=== PATIENT | female | born 1990 | race Caucasian/White ===

== ENCOUNTER 2018-03-29 22:14 | Emergency (ER) | payer OTHER ==
[2018-03-29 22:57] VITALS: BP 112/65; PULSE 82; TEMP 98.8; BMI 21.5
--- NOTE | 2018-03-29 23:04 | PDOC ---
History of Present Illness - General Chief Complaint: Vaginal Bleeding Stated Complaint: VAGINAL BLEEDING Time Seen by Provider: 03/29/18 23:04 History Source: Patient - History of Present Illness Initial Comments: 03/29/18 23:33 The patient is a 27 year old female with no PMH that presented to ED complaining of vaginal bleeding and abdominal cramps that started yesterday around 12 PM. She is , LMP January 24, no US, obgyn visit yet. The patient states that her pain was intermittent, 7/10, LLQ, radiation to mid abdomen, now improved, +nausea. The patient reports light red blood, initially it was spotting, now more. She denies fever, chills. She denies diarrhea, dysuria, increased frequency. Timing/Duration: 24 hours Past History - Past Medical History Allergies/Adverse Reactions: Allergies Allergy/AdvReac Type Severity Reaction Status Date / Time No Known Allergies Allergy Verified 03/30/18 00:14 Home Medications: Ambulatory Orders NK [No Known Home Medication] 03/30/18 COPD: No - Suicide/Smoking/Psychosocial Hx Smoking History: Never smoked Have you smoked in the past 12 months: No Information on smoking cessation initiated: No Hx Alcohol Use: No Drug/Substance Use Hx: No Review of Systems - Review of Systems Able to Perform ROS?: Yes Constitutional: No: Symptoms Reported HEENTM: No: Symptoms Reported Respiratory: No: Symptoms reported, Cough, Shortness of Breath, Wheezing Cardiac (ROS): No: Symptoms Reported, Chest Pain, Lightheadedness, Palpitations ABD/GI: Yes: Symptoms Reported, See HPI, Nausea, Vomiting, Abdominal cramping : No: Symptoms Reported, Dysuria, Frequency, Flank Pain Neurological: No: Symptoms reported *Physical Exam - Vital Signs Last Vital Signs Temp Pulse Resp BP Pulse Ox 98.8 F 82 16 112/65 100 03/29/18 22:38 03/29/18 22:38 03/29/18 22:38 03/29/18 22:38 03/29/18 22:38 - Physical Exam General Appearance: Yes: Nourished, Appropriately Dressed HEENT: positive: EOMI, YOSELIN Respiratory/Chest: positive: Lungs Clear, Normal Breath Sounds Cardiovascular: positive: Regular Rhythm, Regular Rate, S1, S2. negative: Edema , Murmur Female Pelvic Exam: positive: vaginal bleeding, other (the patient has visible vaginal bleeding visible outside of her vagina, refused bimanual exam) Moderate Sedation - Procedure Monitoring Vital Signs: Procedure Monitoring Vital Signs Temperature 98.8 F 03/29/18 22:38 Pulse Rate 82 03/29/18 22:38 Respiratory Rate 16 03/29/18 22:38 Blood Pressure 112/65 03/29/18 22:38 O2 Sat by Pulse Oximetry (%) 100 03/29/18 22:38 Medical Decision Making - Medical Decision Making 03/29/18 23:41 The patient is a 27 year old female with vaginal bleeding, abdominal cramping since yesterday around 12 PM. Differential diagnosis includes thretened , ectopic , torsion of ovary. We will obtain transvaginal US, CBC, CMP, quant b hcg., type and screen. The patient refused NS. 03/30/18 00:21 The patient went for transvaginal US. Signed out to Dr Blanchard. *DC/Admit/Observation/Transfer Diagnosis at time of Disposition: Threatened - Referrals Referrals: Mateo Garcia MD [Primary Care Provider] - - Patient Instructions - Post Discharge Activity
--- NOTE | 2018-03-30 00:12 | PDOC ---
Attending Attestation - HPI HPI: 03/30/18 00:14 The patient is a 27 year old female , with no significant PMH, who presents to the emergency department with vaginal bleeding and intermittent abdominal cramps for 1 day. The patient states she is currently with her LMP January 24. The patient states her abdominal cramps are rated 7/10, located in the LLQ, radiating to mid abdomen, with associated nausea without vomiting. The patient reports vaginal bleeding with light red blood which she states was initially spotting but now more. The patient states she has not yet had US or visit with NUCLEAR INSTRUCTOR. The patient denies chest pain, shortness of breath, headache and dizziness. Denies fever, chills, vomit, diarrhea and constipation. Denies dysuria, frequency, urgency. Allergies: NKA Documentation prepared by Basilio Callahan, acting as medical attendant for Tulio Pettit MD. <Basilio Callahan - Last Filed: 03/30/18 00:14> - Resident Resident Name: Kiersten Jin - ED Attending Attestation I have performed the following: I have examined & evaluated the patient, The case was reviewed & discussed with the resident, I agree w/resident's findings & plan, Exceptions are as noted - Physicial Exam PE: 03/30/18 00:38 Patient is awake and alert, well-appearing, in no distress Normocephalic and atraumatic PERRLA, EOMI CTA abdomen soft, nondistended, minimal right lower pelvic tenderness to palpation is appreciated Pelvic exam: See evaluation by Dr. Phillips No CVA tenderness bilaterally - Medical Decision Making 03/30/18 00:39 Patient is a 27-year-old female, 1 para 0, at approximately 9 weeks gestation who presents with abdominal pain and vaginal bleeding. Differential diagnosis includes ectopic versus threatened AB. Will obtain transvaginal ultrasound. Will obtain beta hCG and type and screen. Will reassess. Likely discharge. <Tulio Pettit - Last Filed: 03/30/18 00:40>
--- NOTE | 2018-03-30 00:13 | PDOC ---
*Physical Exam - Vital Signs Last Vital Signs Temp Pulse Resp BP Pulse Ox 98.8 F 82 16 112/65 100 03/29/18 22:38 03/29/18 22:38 03/29/18 22:38 03/29/18 22:38 03/29/18 22:38 ED Treatment Course - LABORATORY CBC & Chemistry Diagram: 03/30/18 00:00 03/30/18 00:00 Medical Decision Making - Medical Decision Making 03/30/18 00:[address] Phillips 27 year old female presented with vaginal bleeding and abdominal cramping for 2 days. 03/30/18 01:29 TVS: 1. Elongated intrauterine gestational sac. No viable intrauterine identified. 2. normal appearance of right and left ovary. Recommendation: interval surveillance with serial beta hCG measurements. 03/30/18 02:00 beta hCG - 4292.1 *DC/Admit/Observation/Transfer Diagnosis at time of Disposition: Threatened - Discharge Dispostion Disposition: HOME Condition at time of disposition: Stable Decision to Admit order: No - Referrals Referrals: Mateo Garcia MD [Primary Care Provider] - - Patient Instructions Additional Instructions: You were seen because you had vaginal bleeding and belly pain. Your beta hCG, which is the hormone, is high. The ultrasound done was not confirmatory. Please follow-up with Dr. Lujan tomorrow as scheduled. We recommend that you have a repeat ultrasound and beta hCG level. Come back to the ED after 2 days if you haven't followed-up with Dr. Lujan by then. Avoid strenuous activities. Drink plenty of water. Call 911 or go to the ED if with any worsening vaginal bleeding, belly pains, weakness, dizziness, fever, chills or any new concerns noted. - Post Discharge Activity
[2018-03-30 01:04] LABS: URINE APPEARANCE CLEAR; URINE BILIRUBIN NEGATIVE (<2.0 mg/dL); URINE COLOR STRAW; URINE GLUCOSE (UA) NEGATIVE (NEGATIVE); URINE KETONE NEGATIVE (NEGATIVE); URINE LEUK ESTERASE NEGATIVE (NEGATIVE); URINE NITRITE NEGATIVE (NEGATIVE); URINE PROTEIN NEGATIVE (NEGATIVE); URINE UROBILINOGEN NEGATIVE mg/dL (0.2-1.0)
[2018-03-30 01:09] LABS: BASO % 0.3 % (0-2.0); EOS % 5.3 % (0-4.5); HEMATOCRIT 39.1 % (32.4-45.2); HEMOGLOBIN 13.8 GM/dL (10.7-15.3); LYMPH % 32.9 % (8-40); MCH 32.5 pg (25.7-33.7); MCHC 35.2 g/dl (32.0-36.0); MEAN CELL VOLUME 92.4 fl (80-96); MEAN PLT VOLUME 9.7 fl (7.5-11.1); MONO % 10.1 % (3.8-10.2); NEUT % 51.4 % (42.8-82.8); PLATELET COUNT 248 K/MM3 (134-434); RBC 4.23 M/mm3 (3.60-5.2); RDW 12.8 % (11.6-15.6); WHITE BLOOD COUNT 7.7 K/mm3 (4.0-10.0)
[2018-03-30 01:28] LABS: EPI CELLS RARE /HPF (FEW); URINE MUCUS RARE
[2018-03-30 01:33] LABS: ALBUMIN 4.2 g/dl (3.4-5.0); ALK PHOS 57 U/L (45-117); ANION GAP 6 MMOL/L (8-16); BILIRUBIN,TOTAL 0.4 mg/dL (0.2-1); BLOOD UREA NITROGEN 12 mg/dL (7-18); CALCIUM 9.1 mg/dL (8.5-10.1); CHLORIDE 102 mmol/L (98-107); CO2 28 mmol/L (21-32); CREATININE 0.7 mg/dL (0.55-1.3); GLUCOSE,RANDOM 95 mg/dL (74-106); POTASSIUM 4.2 mmol/L (3.5-5.1); SGOT/AST 16 U/L (15-37); SGPT/ALT 27 U/L (13-61); SODIUM 137 mmol/L (136-145)
[2018-03-30] MEDS ORDERED: RHO(D) IMMUNE GLOBULIN 1,500 UNIT DISP.SYRIN IM ONE (02:33)
== END 2018-03-30 03:00 | disposition home or self-care (01) ==
LOC: JER 22:14
DX: O26.891 Other specified pregnancy related conditions, first trimester (principal); Z3A.00 Weeks of gestation of pregnancy not specified; O20.0 Threatened abortion
CPT/HCPCS: 36415; 76817-TC; 80053; 81003; 81015; 84702; 85025; 86850; 86900; 86901; 99282-25

== ENCOUNTER 2018-03-30 17:02 | Emergency (ER) | payer OTHER ==
[2018-03-30] MEDS ORDERED: SODIUM CHLORIDE 1,000 ML IV STA (17:07)
[2018-03-30] MEDS ORDERED: ACETAMINOPHEN 1000 MG/100 ML VIAL (NON FORMULARY) IVPB ONE (17:07)
[2018-03-30] MEDS ORDERED: ACETAMINOPHEN INJECTION 100 ML IVPB ONE (17:12)
[2018-03-30 17:27] VITALS: BP 120/60; PULSE 90; TEMP 98; BMI 27.4
[2018-03-30 17:50] LABS: BASO % 0.4 % (0-2.0); EOS % 2.2 % (0-4.5); HEMATOCRIT 38.5 % (32.4-45.2); HEMOGLOBIN 13.5 GM/dL (10.7-15.3); LYMPH % 14.6 % (8-40); MCH 32.5 pg (25.7-33.7); MCHC 35.2 g/dl (32.0-36.0); MEAN CELL VOLUME 92.3 fl (80-96); MEAN PLT VOLUME 9.3 fl (7.5-11.1); MONO % 6.4 % (3.8-10.2); NEUT % 76.4 % (42.8-82.8); PLATELET COUNT 243 K/MM3 (134-434); RBC 4.17 M/mm3 (3.60-5.2); RDW 12.6 % (11.6-15.6); WHITE BLOOD COUNT 14.8 K/mm3 (4.0-10.0)
[2018-03-30 18:00] LABS: INR 1.12 (0.83-1.09); PROTHROMBIN TIME (PATIENT) 13.2 SEC (9.7-13.0)
[2018-03-30 18:11] LABS: ALBUMIN 4.4 g/dl (3.4-5.0); ALK PHOS 60 U/L (45-117); ANION GAP 10 MMOL/L (8-16); BILIRUBIN,TOTAL 0.5 mg/dL (0.2-1); BLOOD UREA NITROGEN 9 mg/dL (7-18); CALCIUM 9.2 mg/dL (8.5-10.1); CHLORIDE 104 mmol/L (98-107); CO2 24 mmol/L (21-32); CREATININE 0.7 mg/dL (0.55-1.3); GLUCOSE,RANDOM 90 mg/dL (74-106); POTASSIUM 3.8 mmol/L (3.5-5.1); SGOT/AST 14 U/L (15-37); SGPT/ALT 26 U/L (13-61); SODIUM 138 mmol/L (136-145)
[2018-03-30] MEDS ORDERED: KETOROLAC TROMETHAMINE 15 MG/ML VIAL IVPUSH ONE (18:27)
--- NOTE | 2018-03-30 18:27 | PDOC ---
History of Present Illness - General Chief Complaint: Vaginal Bleeding Stated Complaint: MISCARRIAGE Time Seen by Provider: 03/30/18 17:07 - History of Present Illness Initial Comments: 03/30/18 18:21 27 yo , LMP 01/24/18, at 5w6d with no significant history BIBA with vaginal bleeding, and abdominal pain. Patient with ongoing, unremitting, crampy lower abdominal pain, and vaginal bleeding/.clotting x 3 days. 2 pads per day. Patient with 3 hours of worsening 10/10 severity lower abdominal pain, and increased clotting. + nausea without vomiting. Follows with Dr. Medina. Patient recently seen in office Dr. Medina today with TVUS no FHR, but visible gestational sac/ pole in uterus. Per Dr. Medina, patient will likely spontaneous pass products. Patient last seen in [facility] ED (03/29/18) with similar presentation, TVUS (03/29/18) with likely demise 5w6d, and no FHR. Blood A+. Patient denies NEAL, LOC, vision change, convulsions, palpitations, F,C, CP, SOB, urinary complaints, hematuria, BPR, diarrhea, constipation, lightheadedness, weakness, sensory changes. PMHx: as noted above. Denies h/o abdominal surgeries ROS: as noted SHx: Denies Etoh, IVDA, tobacco, Caffeine. Allergies: NKDA Dredge Lever Operator: Dr. Alcala Past History - Past Medical History Allergies/Adverse Reactions: Allergies Allergy/AdvReac Type Severity Reaction Status Date / Time No Known Allergies Allergy Verified 03/30/18 00:14 Home Medications: Ambulatory Orders NK [No Known Home Medication] 03/30/18 COPD: No CHF: No - Reproductive History Is Patient Now?: Yes Cervical CA: No Dysfunctional Uterine Bleeding: No Ectopic : No Endometrial CA: No Polycystic Ovaries: No Tubal Ligation: No Spontaneous : 1 - Suicide/Smoking/Psychosocial Hx Smoking History: Never smoked Have you smoked in the past 12 months: No Information on smoking cessation initiated: No Hx Alcohol Use: No Drug/Substance Use Hx: No Review of Systems - Review of Systems Comments:: 03/30/18 18:30 GENERAL/CONSTITUTIONAL: No fever or chills. No weakness. HEAD, EYES, EARS, NOSE AND THROAT: No change in vision. No ear pain or discharge. No sore throat. CARDIOVASCULAR: No chest pain or shortness of breath RESPIRATORY: No cough, wheezing, or hemoptysis. GASTROINTESTINAL: + Abdominal pain, nausea, vomiting. No diarrhea or constipation. GENITOURINARY: + Vaginal bleeding, and pelvic pain. No dysuria, frequency, or change in urination. MUSCULOSKELETAL: No joint or muscle swelling or pain. No neck or back pain. SKIN: No rash NEUROLOGIC: No headache, vertigo, loss of consciousness, or change in strength/ sensation. ENDOCRINE: No increased thirst. No abnormal weight change HEMATOLOGIC/LYMPHATIC: No anemia, easy bleeding, or history of blood clots. ALLERGIC/IMMUNOLOGIC: No hives or skin allergy. *Physical Exam - Vital Signs Last Vital Signs Temp Pulse Resp BP Pulse Ox 98.0 F 90 16 120/60 100 03/30/18 17:05 03/30/18 17:05 03/30/18 17:05 03/30/18 17:05 03/30/18 17:05 - Physical Exam Comments: 03/30/18 18:31 GENERAL: Awake, alert, and fully oriented, in no acute distress HEAD: No signs of trauma, normocephalic, atraumatic EYES: PERRLA, EOMI, sclera anicteric, conjunctiva clear ENT: Auricles normal inspection, hearing grossly normal, nares patent, oropharynx clear without exudates. Moist mucosa NECK: Normal ROM, supple, no lymphadenopathy, JVD, or masses LUNGS: No distress, speaks full sentences, clear to auscultation bilaterally HEART: Regular rate and rhythm, normal S1 and S2, no murmurs, rubs or gallops, peripheral pulses normal and equal bilaterally. ABDOMEN: + BL Lower abdominal ttp. Soft, nontender, normoactive bowel sounds. No guarding, no rebound. No masses. Neg CVA ttp. GENITOURINARY: + visible blood on external genitalia. + blood pooling in vaginal vault. + Clotting in vaginal vault. Cervical os open. Neg adenexal ttp. Neg CMT on BM. Supervised by nurse Schuler. EXTREMITIES : Normal inspection, Normal range of motion, no edema. No clubbing or cyanosis. SKIN: Warm, Dry, normal turgor, no rashes or lesions noted Moderate Sedation - Procedure Monitoring Vital Signs: Procedure Monitoring Vital Signs Temperature 98.0 F 03/30/18 17:05 Pulse Rate 90 03/30/18 17:05 Respiratory Rate 16 03/30/18 17:05 Blood Pressure 120/60 03/30/18 17:05 O2 Sat by Pulse Oximetry (%) 100 03/30/18 17:05 ED Treatment Course - LABORATORY CBC & Chemistry Diagram: 03/30/18 17:21 03/30/18 17:21 - ADDITIONAL ORDERS Additional order review: Laboratory Results 03/30/18 03/30/18 17:21 17:21 PT with INR 13.20 H INR 1.12 H Sodium 138 Potassium 3.8 Chloride 104 Carbon Dioxide 24 Anion Gap 10 BUN 9 Creatinine 0.7 Creat Clearance w eGFR > 60 Random Glucose 90 Calcium 9.2 Total Bilirubin 0.5 AST 14 L ALT 26 Alkaline Phosphatase 60 Total Protein 8.0 Albumin 4.4 03/30/18 17:21 RBC 4.17 MCV 92.3 MCHC 35.2 RDW 12.6 MPV 9.3 Neutrophils % 76.4 D Lymphocytes % 14.6 D Monocytes % 6.4 Eosinophils % 2.2 Basophils % 0.4 - Medications Given in the ED: ED Medications Discontinued Medications Generic Name Dose Route Start Last Admin Trade Name Freq PRN Reason Stop Dose Admin Acetaminophen 1,000 mg 03/30/18 17:07 03/30/18 17:27 Ofirmev Injection - IVPB 03/30/18 17:08 1,000 mg ONCE ONE Administration Sodium Chloride 1,000 mls @ 1,000 mls/hr 03/30/18 17:07 03/30/18 17:27 Normal Saline - IV 03/30/18 18:06 1,000 mls/hr ASDIR STA Administration Medical Decision Making - Medical Decision Making 03/30/18 18:27 27 yo , LMP 01/24/18 with no significant history BIBA with vaginal bleeding , and abdominal pain. VSS, AF, A&Ox3+, + open cervical os, visible tissue , clotting, BL lower abdominal ttp. Will evaluate for demise. Will consider threatened or complete , ectopic , retained POC, ovarian pathology, cystitis. Less likely GI related; appendicitis, colitis. ED Course: CBC,CMP, HCG, UA TVUS Possible gestational sac/ tissue recovered on physical exam. Sent to path. 03/30/18 19:49 TVUS: No gestational sac or embryonic pole. 03/30/18 19:49 WBC: 14.8 HCG( 3401), 03/30/18 ( 4292 ) 03/30/18 20:05 Dr. Medina answering service contacted. Awaiting call back. 03/30/18 20:[address] Medina will give 20 Units Pitocin in 1000 NS at 250/hr. Can go home after 500. Follow up in office in 2 weeks. 03/30/18 23:51 Pitocin drip finished Patient pain free, HDS. Absent abdominal ttp. Vaginal bleeding controlled. Patient advised to f/u with [facility] with confirmed apt. Monday (04/01/18) Stable for d/c with return precautions. *DC/Admit/Observation/Transfer Diagnosis at time of Disposition: Threatened , Complete - Referrals Referrals: Mateo Garcia MD [Primary Care Provider] - - Patient Instructions Printed Discharge Instructions: DI for Miscarriage Additional Instructions: Please return to the emergency department with any new or worsening symptoms or concerns. Please follow up with your primary care physician within 72 hours. Please follow up with Dredge Lever Operator Dr. Alcala within in 2 days. - Post Discharge Activity - Attestations Physician Attestion: 03/30/18 19:50 I attest to the information provided in this note.
[2018-03-30] MEDS ORDERED: KETOROLAC TROMETHAMINE 15 MG/ML VIAL ONE (18:39)
--- NOTE | 2018-03-30 19:16 | PDOC ---
Attending Attestation - HPI HPI: 03/30/18 19:27 The patient is a 27-year-old female, , 9 weeks , presents to the emergency department via EMS with vaginal bleeding and abdominal pain. The patient presents with 3 days of vaginal bleeding, associated with abdominal pain thats increased in severity. The patient reports shes been having 3 days of vaginal bleeding, with clot passing. The patient was seen at ER on 2017 for similar symptoms. The patients transvaginal u/s showed, gestational age of 5 weeks 6 days The patient was discharged and recommended to follow up with ENTERTAINMENT CENTRE MANAGER. The patient reports following up with Dr. Lujan. The patient reports following up with OB states she would pass rest of the tissue. Denies fever, chills, headache, chest pain, SOB, dysuria, frequency or urgency to urinate, diarrhea, weakness, lightheadedness, or tingling. LMP: 01/24/2018 Allergies: NKA Social history: None reported Surgical history: None reported. ENTERTAINMENT CENTRE MANAGER: Dr. Perez. PCP: Mateo Foley MD. - Physicial Exam PE: 03/30/18 20:50 GENERAL: The patient is in no acute distress. LUNGS: Breath sounds equal, clear to auscultation bilaterally. No wheezes, and no crackles. HEART:Regular rate and rhythm, normal S1 and S2 without murmur, rub or gallop. ABDOMEN: Soft, nontender No guarding, no rebound. No masses palpable. Pelvic exam: Per Dr. Bojorquez. - Medical Decision Making 03/30/18 19:28 Documentation prepared by Kaia Fuentes, acting as medical technician for Sylvia Moore MD. <Kaia Fuentes - Last Filed: 03/30/18 20:50> - Resident Resident Name: Gregorio Bojorquez - ED Attending Attestation I have performed the following: I have examined & evaluated the patient, The case was reviewed & discussed with the resident, I agree w/resident's findings & plan, Exceptions are as noted - HPI HPI: - Physicial Exam PE: 03/30/18 19:21 - Medical Decision Making 03/30/18 19:17 Laboratory Tests 03/30/18 03/30/18 03/30/18 00:00 00:00 00:00 WBC 7.7 Hgb 13.8 Hct 39.1 Plt Count 248 BUN 12 Creatinine 0.7 Beta HCG, Quant 4292.1 03/30/18 03/30/18 03/30/18 17:21 17:21 17:21 WBC 14.8 H Hgb 13.5 Hct 38.5 Plt Count 243 BUN 9 Creatinine 0.7 Beta HCG, Quant 3201.9 Pt sent to US, pending results 03/30/18 19:19 03/30/18 20:45 US demonstrates miscarriage case reviewed with Dr Lujan He recommends Pitocin drip for 2 hours and then discharge Follow up in the office in 2 weeks (pt has appointment in 3 days) Pt given strict return precautions <Sylvia Moore - Last Filed: 03/30/18 21:07>
[2018-03-30] MEDS ORDERED: OXYTOCIN 20 UNITS in 0.9% NS 20 UNIT/1,000 ML INFUS.BAG IV SCH (20:15)
[2018-03-30] MEDS ORDERED: OXYTOCIN 10 UNITS/ML VIAL ONE (22:15)
--- NOTE | 2018-04-04 16:51 | PATH ---
Surgical Pathology Report Patient Name: DELIA MADSEN [facility]. Rec. #: [id number] /Age/Gender: 1990 (Age: 27) / F Account: [id number] Location: EMERGENCY ROOM Taken: 03/30/2018 Received: 04/02/2018 Reported: 04/04/2018 Physicians: Twin Leger M.D. PHYSICIAN EMERGENCY DEPT Specimen(s) Received VAGINAL/UTERINE SPECIMEN Clinical History 5 weeks 6 days 27 year old , 3 days of abdominal pain and vaginal bleeding Final Diagnosis PRODUCTS OF CONCEPTION, DILATION AND CURETTAGE: RARE IMMATURE CHORIONIC VILLI AND DECIDUA CONSISTENT WITH PRODUCTS OF CONCEPTION. Electronically Signed Harini Crain M.D. Gross Description Received in formalin, labeled with the patient's name and indicated on the requisition to be products of conception, is a 7.5 x 4.2 x 0.5 cm portion of deluca davis soft tissue, consistent with decidual tissue. No definite villous tissue or somatic tissue is identified. The entire specimen is submitted in 8 cassettes. 04/02/2018 saudi04/02/2018
== END 2018-03-31 01:17 | disposition home or self-care (01) ==
LOC: JER 17:02
PROC: 3E033NZ Introduction of Analgesics, Hypnotics, Sedatives into Peripheral Vein, Percutaneous Approach (ICD-10-PCS; principal; 2018-03-30)
PROC: 3E0333Z Introduction of Anti-inflammatory into Peripheral Vein, Percutaneous Approach (ICD-10-PCS; 2018-03-30)
PROC: 3E0337Z Introduction of Electrolytic and Water Balance Substance into Peripheral Vein, Percutaneous Approach (ICD-10-PCS; 2018-03-30)
DX: O26.891 Other specified pregnancy related conditions, first trimester (principal); Z3A.09 9 weeks gestation of pregnancy; O03.9 Complete or unspecified spontaneous abortion without complication
CPT/HCPCS: 36415; 76817-TC; 80053; 84702; 85025; 85610; 86850; 86900; 86901; 88305-TC; 99283-25; J0131; J7030

== ENCOUNTER 2019-05-20 | Inpatient (IN) | payer OTHER ==
[2019-05-20 02:51] LABS: BASO % 0.1 % (0-2.0); HEMATOCRIT 38.7 % (32.4-45.2); HEMOGLOBIN 13.1 GM/dL (10.7-15.3); LYMPH % 12.5 % (8-40); MCH 32.3 pg (25.7-33.7); MCHC 33.8 g/dl (32.0-36.0); MEAN CELL VOLUME 95.6 fl (80-96); MEAN PLT VOLUME 8.6 fl (7.5-11.1); MONO % 7.7 % (3.8-10.2); NEUT % 78.7 % (42.8-82.8); PLATELET COUNT 238 K/MM3 (134-434); RBC 4.05 M/mm3 (3.60-5.2); RDW 13.6 % (11.6-15.6); WHITE BLOOD COUNT 12.1 K/mm3 (4.0-10.0)
[2019-05-20 03:03] LABS: INR 0.92 (0.83-1.09); PROTHROMBIN TIME (PATIENT) 10.9 SEC (9.7-13.0)
[2019-05-20 03:06] LABS: ACTIVATED PTT 31.1 SECONDS (25.2-36.5)
[2019-05-20 03:14] LABS: BLOOD UREA NITROGEN 6.5 mg/dL (7-18); CALCIUM 9.3 mg/dL (8.5-10.1); CREATININE 0.5 mg/dL (0.55-1.3); POTASSIUM 4.3 mmol/L (3.5-5.1)
[2019-05-20] MEDS ORDERED: OXYTOCIN 20 UNITS in 0.9% NS 20 UNIT/1,000 ML INFUS.BAG IV ONE (03:19)
[2019-05-20] MEDS ORDERED: LIDOCAINE HCL 1% PRESERVATIVE FREE - 30ML VIAL ONE (03:20)
[2019-05-20] MEDS ORDERED: BENZOCAINE 28 GM HEMORRHOIDAL OINTMENT TP PRN (04:15)
[2019-05-20] MEDS ORDERED: WITCH HAZEL 50% (TUCKS) 40 PAD/JAR PAD TP PRN (04:15)
[2019-05-20] MEDS ORDERED: BENZOCAINE 20% 57 GM BOTTLE TP PRN (04:15)
[2019-05-20] MEDS ORDERED: OXYTOCIN 20 UNITS in 0.9% NS 20 UNIT/1,000 ML INFUS.BAG IV SCH (04:15)
[2019-05-20] MEDS ORDERED: BISACODYL 10 MG SUPP.RECT RC PRN (04:15)
[2019-05-20] MEDS ORDERED: METHYLERGONOVINE MALEATE 0.2 MG/1 ML AMP IM PRN (04:15)
--- NOTE | 2019-05-20 04:22 | HP ---
Past Medical History - Primary Care Physician PCP:: Yves Estrada - Admission Chief Complaint: 28yo P0 with at EGA 37wk admtted in spont labor. History of Present Illness: Pt presented in labor and was noted to be 2 cm dilated. She progressed quickly to 10cm and had . with cholestasis of . 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: No: Alzheimer's, CVA, Dementia, Migraine, Multiple Sclerosis, Peripheral Neuropathy, Parkinson's, Seizure, Syncope, TIA, Vertigo, Other Cardiovascular: No: AFIB, Aneurysm, Aortic Insufficiency, Aortic Stenosis, CAD, CHF, Deep Vein Thrombosis, HTN, Hyperlipdemia, AR, Mitral Insufficiency, Mitral Stenosis, Murmur, Pulmonary Hypertension, Other Pulmonary: No: Asthma, Bronchitis, Cancer, COPD, O2 Dependent, Pneumonia, Previously Intubated, Pulmonary Embolus, Pulmonary Fibrosis, Sleep Apnea, Other Gastrointestinal: No: Ascites, Cancer, Constipation, Crohn's Disease, Diverticulitis, Diverticulosis, Esophageal Varices, Gastritis, GERD, GI Bleed, Hemorrhoids, Hiatal Hernia, Inflamatory Bowel Disease, Irritable Bowel Disease, Pancreatitis, Peptic Ulcer Disease, Ulcerative Colitis, Other Hepatobiliary: Yes: Other (cholestasis of ) Renal/: No: Renal Failure, Renal Inusuff, BPH, Cancer, Hematuria, Hemodialysis , Neurogenic Bladder, Renal Calculi, UTI, Other Reproductive: No: Ectopic , Endometriosis, Fibroids, PID, Polycystic Ovary Syndrome, Postmenopausal, Other ...: 2 ...Para: 0 ...Spon : 0 ...Induced : 1 ... Weeks Gestation by Dates: 37 Heme/Onc: No: Anemia, B12 Deficiency, Bleeding Disorder, Cancer, Current Chemotherapy, Current Radiation Therapy, Hemochromatosis, Hypercoaguable State, Myeloproliferative Synd, Sickle Cell Disease, Sickle Cell Trait, Thrombocytopenia, Other Infectious Disease: No: AIDS, C-Diff, Herpes Zoster, HIV, MRSA, STD's, Tuberculosis, VREF, Other Psych: No: Addictions, Anxiety, Bipolar, Depression, Panic, Psychosis, Schizophrenia, Other Musculoskeletal: No: Bursitis, Chronic low back pain, Hemiparesis, Hemiplegia, Osteoarthritis, Paraplegia, Other Rheumatology: No: Fibromyalgia, Gout, Lupus, Rheumatoid Arthritis, Sarcoidosis, Vasculitis, Other ENT: No: Allergic Rhinitis, Sinusitis, Other Endocrine: No: Ronnie's Disease, Sherlyn's Disease, Diabetes Insipidus, Diabetes Mellitus, Hyperparathyroidism, Hyperthyroidism, Hypothyroidism, Osteopenia, SIADH, Other Dermatology: No: Basal Cell, Cellulitis, Eczema, Melanoma, Psoriasis, Squamous Cell, Other - Past Surgical History Past Surgical History: Yes: None Hx Myomectomy: No Hx Transabdominal Cerclage: No - Smoking History Smoking history: Never smoked Have you smoked in the past 12 months: No - Alcohol/Substance Use Hx Alcohol Use: No History of Substance Use: reports: None - Social History Usual Living Arrangement: Yes: With Spouse Do you think of yourself as: Straight/Heterosexual ADL: Independent 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 History of Recent Travel: No Home Medications - Allergies Allergies/Adverse Reactions: Allergies Allergy/AdvReac Type Severity Reaction Status Date / Time No Known Allergies Allergy Verified 05/20/19 02:29 Family Medical History Family History: Denies Review of Systems - Review of Systems Constitutional: reports: Other (Labor) Eyes: reports: No Symptoms HENT: reports: No Symptoms Neck: reports: No Symptoms Cardiovascular: reports: No Symptoms Respiratory: reports: No Symptoms Gastrointestinal: reports: No Symptoms Genitourinary: reports: Other (SROM) Breasts: reports: No Symptoms Reported Musculoskeletal: reports: No Symptoms Integumentary: reports: No Symptoms Neurological: reports: No Symptoms Endocrine: reports: No Symptoms Hematology/Lymphatic: reports: No Symptoms Psychiatric: reports: No Symptoms Pain Intensity: 10 Physical Exam - Maternity Constitutional: Yes: Well Nourished, Calm, Severe Distress Eyes: Yes: WNL, Conjunctiva Clear, EOM Intact HENT: Yes: WNL, Atraumatic, Normocephalic Neck: Yes: WNL, Supple, Trachea Midline Cardiovascular: Yes: WNL, Regular Rate and Rhythm Lungs: Clear to auscultation, Normal air movement Breast(s): Yes: WNL - Abdominal Exam/OB Fundal Height: 37 Number of Fetuses: Single Presentation: Vertex Contractions: Yes Regularity: Regular Monitor Mode: External Heart Rate (range): 140 Category: I Accelerations: Non-Uniform Decelerations: None - Vaginal Exam/OB Vaginal Bleediing: No Speculum Exam: No Dilatation (cm): 10 Station: +3 - Physical Exam Musculoskeletal: Yes: WNL Extremities: Yes: WNL Edema: No Integumentary: Yes: WNL Deep Tendon Reflex Grade: Normal +2 ...Motor Strength: WNL Psychiatric: Yes: WNL, Alert, Oriented - Labs Lab Results: CBC, BMP 05/20/19 02:00 05/20/19 02:00 Hemorrhage Risk Assessment - Risk Factors Medium Risk Factors: Yes: None High Risk Factors: Yes: None Risk Score: 1 Risk Level: Medium Risk Imaging - Results Ultrasound: Report Reviewed Assessment/Plan 28yo P0 with at EGA 37wk admtted in spont labor. Pt had w/o complications.
[2019-05-20] MEDS ORDERED: ACETAMINOPHEN 325 MG TABLET (FP) ONE (04:25)
[2019-05-20] MEDS ORDERED: IBUPROFEN 600 MG TABLET (FP) PO ONE (04:25)
[2019-05-20 05:18] VITALS: BMI 23.0
--- NOTE | 2019-05-20 08:49 | PN ---
Delivery - Delivery Vaginal Delivery: No Problems, Spontaneous Type of Anesthesia: Local Episiotomy/Laceration: Midline EBL (cc): 250 Delivery, Single - Stages of Labor Date 1st Stage Initiatied: 05/19/19 Time 1st Stage Initiated: 22:00 Date 2nd Stage Initiated: 05/20/19 Time 2nd Stage Initiated: 03:10 Date of Delivery: 05/20/19 Time of Delivery: 03:46 Date Placenta Delivered: 05/20/19 Time Placenta Delivered: 03:50 Placenta: Yes: Spontaneous, Normal Configuration - Condition of Infant Field Manager/Well Logging Captain Mud Analysis Present: No Gender: Female Position: Left, OA Total Hours ROM (Hrs/Mins): 31M - 1 Minute Total Score: 9 5 Minutes Total Score: 9 - [place] Feeding Plan Initial Plan: Elected not to breastfeed exclusively throughout hospitalization Benefits of Exclusively reinforced: Yes
[2019-05-20] MEDS: PRENATAL VITAMINS W/ FOLIC ACID TABLET (FP) PO SCH (09:32)
[2019-05-20] MEDS: IBUPROFEN 600 MG TABLET (FP) PO PRN ×2 (15:30→22:59)
[2019-05-20] MEDS: ACETAMINOPHEN 325 MG TABLET (FP) PO PRN ×2 (15:31→23:01)
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
--- NOTE | 2019-05-21 07:53 | PN ---
Post Progress Note - Subjective Subjective: Patient without acute complaints. Reports tolerating oral intake without nausea or vomiting. Ambulating without dizziness. Denies fevers or chills. Pain well controlled with oral pain medication. Pumping/breast feeding without issue. Passing flatus, no BM. Post Day: 1 Type of Delivery: Vital Signs: Vital Signs Temperature 97.6 F 05/21/19 06:00 Pulse Rate 62 05/21/19 06:00 Respiratory Rate 16 05/21/19 06:00 Blood Pressure 80/50 L 05/21/19 06:00 O2 Sat by Pulse Oximetry (%) Breast Exam: Yes: Soft Uterus: Yes: Fundus Firm, Fundus @ umbilicus Incision: Yes: Dressing dry and intact Abdomen/GI: Yes: Abdomen soft Lochia: Yes: Rubra Lochia, amount: Small Extremities: Yes: Calves non-tender Perineum: Yes: Laceration. No: Intact Activity: Ambulating - Labs Labs: CBC WBC 12.1 K/mm3 (4.0-10.0) H 05/20/19 02:00 RBC 4.05 M/mm3 (3.60-5.2) 05/20/19 02:00 Hgb 13.1 GM/dL (10.7-15.3) 05/20/19 02:00 Hct 38.7 % (32.4-45.2) 05/20/19 02:00 MCV 95.6 fl (80-96) 05/20/19 02:00 MCH 32.3 pg (25.7-33.7) 05/20/19 02:00 MCHC 33.8 g/dl (32.0-36.0) 05/20/19 02:00 RDW 13.6 % (11.6-15.6) 05/20/19 02:00 Plt Count 238 K/MM3 (134-434) 05/20/19 02:00 MPV 8.6 fl (7.5-11.1) 05/20/19 02:00 Absolute Neuts (auto) 9.6 K/mm3 (1.5-8.0) H 05/20/19 02:00 Neutrophils % 78.7 % (42.8-82.8) 05/20/19 02:00 Lymphocytes % 12.5 % (8-40) 05/20/19 02:00 Monocytes % 7.7 % (3.8-10.2) 05/20/19 02:00 Eosinophils % 1.0 % (0-4.5) 05/20/19 02:00 Basophils % 0.1 % (0-2.0) 05/20/19 02:00 Nucleated RBC % 0 % (0-0) 05/20/19 02:00 Assessment/Plan 28yo s/p PPD # 1 doing well VSS, Afebrile cont. routine PP care Plan d/c 05/22/19 Rh pos - no need for RhoGam Female - doing well
[2019-05-21 09:26] LABS: BASO % 0.2 % (0-2.0); EOS % 1.8 % (0-4.5); LYMPH % 14.7 % (8-40); MCH 32.8 pg (25.7-33.7); MCHC 34.3 g/dl (32.0-36.0); MEAN CELL VOLUME 95.7 fl (80-96); MEAN PLT VOLUME 8.3 fl (7.5-11.1); MONO % 5.6 % (3.8-10.2); NEUT % 77.7 % (42.8-82.8); PLATELET COUNT 197 K/MM3 (134-434); RBC 3.34 M/mm3 (3.60-5.2); RDW 13.4 % (11.6-15.6); WHITE BLOOD COUNT 12.1 K/mm3 (4.0-10.0)
[2019-05-21] MEDS: PRENATAL VITAMINS W/ FOLIC ACID TABLET (FP) PO SCH (09:32)
[2019-05-21] MEDS: ACETAMINOPHEN 325 MG TABLET (FP) PO PRN (19:32)
[2019-05-21] MEDS: IBUPROFEN 600 MG TABLET (FP) PO PRN (19:33)
[2019-05-21] MEDS ORDERED: SENNOSIDES/DOCUSATE COMBO (SENNA PLUS) TABLET (UD) PO PRN (22:00)
[2019-05-22] MEDS: ACETAMINOPHEN 325 MG TABLET (FP) PO PRN ×2 (03:56→13:41)
[2019-05-22] MEDS: IBUPROFEN 600 MG TABLET (FP) PO PRN ×2 (03:57→13:39)
[2019-05-22] MEDS: PRENATAL VITAMINS W/ FOLIC ACID TABLET (FP) PO SCH (10:15)
[2019-05-22 11:44] VITALS: BP 93/53; PULSE 83; TEMP 98.4
--- NOTE | 2019-05-22 14:55 | PN ---
Post Progress Note - Subjective Subjective: Patient without acute complaints. Reports tolerating oral intake without nausea or vomiting. Ambulating without dizziness. Denies fevers or chills. Pain well controlled with oral pain medication. Pumping/breast feeding without issue. Passing flatus. Post Day: 2 Type of Delivery: Vital Signs: Vital Signs Temperature 98.4 F 05/22/19 10:00 Pulse Rate 83 05/22/19 10:00 Respiratory Rate 20 05/22/19 10:00 Blood Pressure 93/53 L 05/22/19 10:00 O2 Sat by Pulse Oximetry (%) Breast Exam: Yes: Soft Uterus: Yes: Fundus Firm, Fundus below umbilicus Abdomen/GI: Yes: Abdomen soft, Tolerating PO Lochia: Yes: Rubra Lochia, amount: Small Extremities: Yes: Calves non-tender Perineum: Yes: Episiotomy (repair intact) Activity: Ambulating - Labs Labs: CBC WBC 12.1 K/mm3 (4.0-10.0) H 05/21/19 09:08 RBC 3.34 M/mm3 (3.60-5.2) L 05/21/19 09:08 Hgb 11.0 GM/dL (10.7-15.3) 05/21/19 09:08 Hct 32.0 % (32.4-45.2) L D 05/21/19 09:08 MCV 95.7 fl (80-96) 05/21/19 09:08 MCH 32.8 pg (25.7-33.7) 05/21/19 09:08 MCHC 34.3 g/dl (32.0-36.0) 05/21/19 09:08 RDW 13.4 % (11.6-15.6) 05/21/19 09:08 Plt Count 197 K/MM3 (134-434) 05/21/19 09:08 MPV 8.3 fl (7.5-11.1) 05/21/19 09:08 Absolute Neuts (auto) 9.4 K/mm3 (1.5-8.0) H 05/21/19 09:08 Neutrophils % 77.7 % (42.8-82.8) 05/21/19 09:08 Lymphocytes % 14.7 % (8-40) 05/21/19 09:08 Monocytes % 5.6 % (3.8-10.2) 05/21/19 09:08 Eosinophils % 1.8 % (0-4.5) 05/21/19 09:08 Basophils % 0.2 % (0-2.0) 05/21/19 09:08 Nucleated RBC % 0 % (0-0) 05/21/19 09:08 Assessment/Plan 28yo P1 s/p , doing well stable, afebrile. Asymptomatic for anemia. care instructions reviewed. Continue routine care. Ambulation encouraged Discharge instruction reviewed.
== END 2019-05-22 16:00 | disposition home or self-care (01) | DRG 807 ==
LOC: JDEL → JLDR 01:30 → J3W 05:34
PROVIDERS: ADMIT Obstetrics & Gynecology; ATTEND Obstetrics & Gynecology
PROC: 0W8NXZZ Division of Female Perineum, External Approach (ICD-10-PCS; principal; 2019-05-20)
PROC: 10E0XZZ Delivery of Products of Conception, External Approach (ICD-10-PCS; 2019-05-20)
DX: O99.02 Anemia complicating childbirth (principal); Z37.0 Single live birth; D64.9 Anemia, unspecified; Z3A.37 37 weeks gestation of pregnancy
CPT/HCPCS: 36415; 59409; 80048; 85025; 85610; 85730; 86593; 86850; 86900; 86901

== ENCOUNTER 2022-09-24 00:33 | Inpatient (IN) | payer BC, OTHER ==
[2022-09-24] MEDS ORDERED: DEXTROSE 5%-LACTATED RINGERS 1,000 ML IV SCH (01:25)
[2022-09-24 01:36] VITALS: BMI 23.6
[2022-09-24] MEDS ORDERED: AMPICILLIN SODIUM 2 GM VIAL ONE (01:39)
[2022-09-24] MEDS ORDERED: AMPICILLIN - 2 GM in SODIUM CHLORIDE 100 ML IVPB ONE (01:40)
[2022-09-24 02:07] LABS: BASO % 0.1 % (0-2.0); EOS % 2.9 % (0-4.5); HEMOGLOBIN 12.4 GM/dL (10.7-15.3); MCH 32.6 pg (25.7-33.7); MCHC 34.5 g/dl (32.0-36.0); MEAN CELL VOLUME 94.3 fl (80-96); MEAN PLT VOLUME 8.8 fl (7.5-11.1); MONO % 8.8 % (3.8-10.2); NEUT % 61.2 % (42.8-82.8); PLATELET COUNT 216 10^3/uL (134-434); RBC 3.81 M/mm3 (3.60-5.2); RDW 13.9 % (11.6-15.6)
[2022-09-24 02:18] LABS: INR 0.91 (0.83-1.09); PROTHROMBIN TIME (PATIENT) 10.6 SEC (9.7-13.0)
[2022-09-24 02:21] LABS: ACTIVATED PTT 26.7 SECONDS (25.2-36.5)
[2022-09-24 02:25] LABS: CALCIUM 8.6 mg/dL (8.5-10.1)
[2022-09-24 02:26] LABS: BLOOD UREA NITROGEN 7.8 mg/dL (7-18)
[2022-09-24 02:30] LABS: CREATININE 0.5 mg/dL (0.55-1.3)
[2022-09-24] MEDS ORDERED: OXYTOCIN 30 UNITS in 0.9% NS 30 UNIT/500 ML INFUS.BAG IVPB ONE (05:25)
[2022-09-24] MEDS ORDERED: AMPICILLIN SODIUM 1 GM VIAL ONE (05:25)
[2022-09-24] MEDS: AMPICILLIN - 1 GM in SODIUM CHLORIDE 100 ML IVPB SCH ×4 (05:30→18:06)
[2022-09-24] MEDS ORDERED: ELECTROLYTE-148 SOLN 1,000 ML IV SCH (05:30)
[2022-09-24] MEDS ORDERED: BUTORPHANOL TARTRATE 1 MG/ML VIAL IVPB ONE (05:30)
[2022-09-24] MEDS ORDERED: PROMETHAZINE HCL 25 MG/1 ML VIAL IVPB ONE (05:30)
[2022-09-24] MEDS ORDERED: OXYTOCIN 30 UNITS in 0.9% NS 30 UNIT/500 ML INFUS.BAG IVPB SCH (05:45)
[2022-09-24] MEDS ORDERED: PROMETHAZINE HCL 25 MG/1 ML VIAL ONE (07:46)
[2022-09-24] MEDS ORDERED: BUTORPHANOL TARTRATE 1 MG/ML VIAL ONE (07:46)
[2022-09-24] MEDS ORDERED: OXYTOCIN 20 UNITS in 0.9% NS 20 UNIT/1,000 ML INFUS.BAG IV ONE (09:44)
[2022-09-24] MEDS ORDERED: ACETAMINOPHEN 325 MG TABLET (FP) PO PRN (09:46)
[2022-09-24] MEDS ORDERED: BISACODYL 10 MG SUPP.RECT RC PRN (09:46)
[2022-09-24] MEDS ORDERED: METHYLERGONOVINE MALEATE 0.2 MG/1 ML AMP IM PRN (09:46)
[2022-09-24] MEDS ORDERED: WITCH HAZEL 50% (TUCKS) 40 PAD/JAR PAD TP PRN (09:46)
[2022-09-24] MEDS ORDERED: BENZOCAINE 28 GM HEMORRHOIDAL OINTMENT TP PRN (09:46)
[2022-09-24] MEDS ORDERED: BENZOCAINE 20% 57 GM BOTTLE TP PRN (09:46)
[2022-09-24] MEDS ORDERED: OXYTOCIN 20 UNITS in 0.9% NS 20 UNIT/1,000 ML INFUS.BAG IV SCH (10:00)
[2022-09-24 10:04] LABS: CORD HCO3 24.1 mmHg (20-29); CORD PCO2 60.6 mmHg (30-78); CORD pH 7.217 (7.14-7.44)
[2022-09-24 10:05] LABS: CORD BASE EXCESS -2.1 mmol/L (0-2); CORD HCO3 24.9 mmHg (20-29); CORD PCO2 50.8 mmHg (30-78); CORD pH 7.308 (7.14-7.44)
[2022-09-24] MEDS ORDERED: IBUPROFEN 600 MG TABLET (FP) PO ONE (11:44)
[2022-09-24] MEDS: IBUPROFEN 600 MG TABLET (FP) PO PRN ×3 (11:45→20:41)
[2022-09-24] MEDS: PRENATAL VITAMINS W/ FOLIC ACID TABLET (FP) PO SCH (12:00)
[2022-09-24] MEDS ORDERED: PRENATAL VITAMINS W/ FOLIC ACID TABLET (FP) PO ONE (12:00)
[2022-09-24] MEDS ORDERED: LIDOCAINE HCL 1% PRESERVATIVE FREE - 30ML VIAL ONE (13:32)
[2022-09-25 07:49] LABS: BASO % 0.1 % (0-2.0); EOS % 2.3 % (0-4.5); HEMATOCRIT 35.4 % (32.4-45.2); HEMOGLOBIN 11.8 GM/dL (10.7-15.3); LYMPH % 18.1 % (8-40); MCH 32.3 pg (25.7-33.7); MCHC 33.3 g/dl (32.0-36.0); MEAN CELL VOLUME 97.2 fl (80-96); MEAN PLT VOLUME 9.3 fl (7.5-11.1); MONO % 6.6 % (3.8-10.2); NEUT % 72.9 % (42.8-82.8); PLATELET COUNT 215 10^3/uL (134-434); RBC 3.64 M/mm3 (3.60-5.2); RDW 13.7 % (11.6-15.6); WHITE BLOOD COUNT 11.9 K/mm3 (4.0-10.0)
[2022-09-25] MEDS: IBUPROFEN 600 MG TABLET (FP) PO PRN (10:10)
[2022-09-25] MEDS: PRENATAL VITAMINS W/ FOLIC ACID TABLET (FP) PO SCH (10:10)
[2022-09-25 20:42] VITALS: RESP 18
[2022-09-25] MEDS ORDERED: SENNOSIDES/DOCUSATE COMBO (SENNA PLUS) TABLET (UD) PO PRN (22:00)
[2022-09-26] MEDS: IBUPROFEN 600 MG TABLET (FP) PO PRN (09:06)
[2022-09-26] MEDS: PRENATAL VITAMINS W/ FOLIC ACID TABLET (FP) PO SCH (09:06)
[2022-09-26 09:22] VITALS: BP 97/61; PULSE 100; TEMP 98.6
== END 2022-09-26 13:00 | disposition home or self-care (01) | DRG 807 ==
LOC: JLDR 00:33 → J3W 12:28
PROVIDERS: ADMIT Obstetrics & Gynecology; ATTEND Obstetrics & Gynecology
PROC: 10E0XZZ Delivery of Products of Conception, External Approach (ICD-10-PCS; principal; 2022-09-24)
PROC: 0KQM0ZZ Repair Perineum Muscle, Open Approach (ICD-10-PCS; 2022-09-24)
DX: O99.824 Streptococcus B carrier state complicating childbirth (principal); Z37.0 Single live birth; O42.92 Full-term premature rupture of membranes, unspecified as to length of time between rupture and onset of labor; O70.1 Second degree perineal laceration during delivery; Z3A.37 37 weeks gestation of pregnancy
CPT/HCPCS: 36415; 36600; 80048; 82803; 85025; 85610; 85730; 86780; 86850; 86900; 86901